=== PATIENT | female | born 1995 | race Caucasian/White ===

== ENCOUNTER 2022-03-10 13:46 | Inpatient (IN) ==
[2022-03-10] MEDS ORDERED: Buffered Lidocaine 1% SYRIN 1 ml INTRADERM ONE ×2 (14:23→14:39)
[2022-03-10] MEDS ORDERED: Lactated Ringers 1000 ml BAG 1,000 ML IV ONE (14:39)
[2022-03-10] MEDS ORDERED: Lactated Ringers 1000 ml BAG 1,000 ML IV SCH (15:00)
[2022-03-10] MEDS ORDERED: Penicillin G Potassium IV 5,000,000 UNITS in NS 0.9% 100 ml BAG 100 ML IVPB ONE (15:30)
[2022-03-10 15:54] LABS: ABS Lymphocytes 1.7 10^3/ul (1.0-4.8); ABS Monocytes 0.6 10^3/ul (0-0.8); ABS Neutrophils 9.9 10^3/ul (1.5-7.7); Eosinophil % 0.3 %; Hematocrit 40 % (35-47); Hemoglobin 13.6 g/dL (12.0-16.0); Mean Corpuscular HGB Conc 34 g/dL (31-36); Mean Corpuscular Hemoglobin 33 pg (27-31); Mean Corpuscular Volume 96 fL (80-97); Mean Platelet Volume 7.9 fL (7.4-10.4); Platelet Count 323 10^3/uL (150-450); Red Blood Count 4.14 10^6 /uL (3.70-4.87); Red Cell Distribution Width 12 % (10-15); White Blood Count 12.3 10^3/uL (3.5-10.8)
[2022-03-10 16:41] LABS: Urine Benzodiazepine Screen None Detected (None Detect); Urine Cannabinoids Screen None Detected (None Detect); Urine Opiates Screen None Detected (None Detect)
[2022-03-10] MEDS: Penicillin G Potassium IV 3,000,000 UNITS in NS 0.9% 100 ml BAG 100 ML IVPB SCH ×2 (19:42→23:45)
[2022-03-11] MEDS ORDERED: OBEPIDURAL (200 ML) 200 ML EPIDURAL ONE (00:28)
[2022-03-11] MEDS ORDERED: Lidocaine 1.5% EPI 1:200,000 30 ML SDV ONE (00:35)
[2022-03-11] MEDS ORDERED: Phenylephrine 40 mcg/mL 10mL (400mcg) SYRINGE IV PUSH PRN ×2 (00:57)
[2022-03-11] MEDS ORDERED: Sodium Citrate/Citric Acid LIQ 15 ML UDC PO PRN (00:57)
[2022-03-11] MEDS ORDERED: Lactated Ringers 1000 ml BAG 1,000 ML IV ONE (00:57)
[2022-03-11] MEDS ORDERED: Lactated Ringers 1000 ml BAG 1,000 ML IV SCH ×2 (01:00→12:00)
[2022-03-11] MEDS ORDERED: OBEPIDURAL (200 ML) 200 ML EPIDURAL SCH (01:00)
[2022-03-11 01:56] LABS: Urine Appearance Clear; Urine Bilirubin Negative (Negative); Urine Blood 3+ (Negative); Urine Color Yellow; Urine Glucose Negative (Negative); Urine Ketones 1+ (Negative); Urine Nitrite Negative (Negative); Urine Protein Negative (Negative); Urine Urobilinogen Negative (Negative)
[2022-03-11 02:12] LABS: Urine Bacteria Absent (Absent); Urine Red Blood Cell 3+(>10/hpf) (Absent); Urine Squamous Epithelial Cell Present (Absent); Urine White Blood Cell 1+(6-10/hpf) (Absent)
[2022-03-11] MEDS: Penicillin G Potassium IV 3,000,000 UNITS in NS 0.9% 100 ml BAG 100 ML IVPB SCH ×2 (03:47→07:51)
[2022-03-11] MEDS ORDERED: Oxytocin in LR 20 UNITS/1,000 ML BAG IVPB ONE (09:10)
[2022-03-11] MEDS ORDERED: Oxytocin in LR 20 UNITS/1,000 ML BAG IVPB SCH ×2 (11:00→12:00)
[2022-03-11] MEDS ORDERED: Methylergonovine 0.2 mg AMPULE 1 ml AMP IM ONE (11:17)
[2022-03-11] MEDS ORDERED: Witch Hazel PAD JAR TOPICAL PRN (11:17)
[2022-03-11] MEDS ORDERED: Dibucaine 1% OINT 28.35 GM TUBE PR PRN (11:17)
[2022-03-11] MEDS ORDERED: Lidocaine 1% MPF 5 ML VIAL ONE (16:29)
[2022-03-12 07:29] LABS: ABS Eosinophils 0.1 10^3/ul (0-0.6); ABS Lymphocytes 1.7 10^3/ul (1.0-4.8); ABS Neutrophils 9.2 10^3/ul (1.5-7.7); Eosinophil % 0.7 %; Hematocrit 30 % (35-47); Hemoglobin 10.3 g/dL (12.0-16.0); Lymphocyte % 14.4 %; Mean Corpuscular HGB Conc 34 g/dL (31-36); Mean Corpuscular Hemoglobin 33 pg (27-31); Mean Corpuscular Volume 96 fL (80-97); Mean Platelet Volume 7.3 fL (7.4-10.4); Platelet Count 206 10^3/uL (150-450); Red Blood Count 3.14 10^6 /uL (3.70-4.87); Red Cell Distribution Width 13 % (10-15)
[2022-03-13 09:29] VITALS: BP 109/65
== END 2022-03-13 11:15 | disposition home or self-care (01) | DRG 542 ==
LOC: MCHOBOUT 13:46 → MCHOB 14:41
PROVIDERS: ADMIT Midwife; ATTEND Midwife

== ENCOUNTER 2024-03-10 20:42 | Inpatient (IN) ==
[2024-03-10] MEDS ORDERED: Lidocaine 1% VIAL 10 MG/ML 30 ML VIAL INJ PRN (21:05)
[2024-03-10] MEDS ORDERED: Prochlorperazine 5 mg/ml 2 ml VIAL (10 mg) IV PRN (21:05)
[2024-03-10] MEDS: Penicillin G Potassium IV 5,000,000 UNITS in NS 0.9% 100 ml BAG 100 ML IVPB ONE (21:40)
[2024-03-10 21:59] LABS: ABS Eosinophils 0.1 10^3/uL (0.0-0.5); ABS Lymphocytes 2.4 10^3/uL (1.0-4.8); ABS Monocytes 0.9 10^3/uL (0.0-0.9); ABS Neutrophils 7.2 10^3/uL (1.5-7.6); ABS Nucleated RBC 0.03 10^3/ul; Eosinophil % 1.1 %; Hematocrit 40.1 % (35-45); Hemoglobin 13.9 g/dL (11.5-14.3); Lymphocyte % 22.3 %; Mean Corpuscular Hemoglobin 32.6 pg (27-33); Mean Corpuscular Hgb Conc 34.6 g/dL (31-36); Mean Corpuscular Volume 94.2 fL (80-97); Mean Platelet Volume 7.7 fL (7.5-11.2); Nucleated Red Blood Cells % 0.3 %/100WBC (0.0-0.8); Platelet Count 315 10^3/uL (150-450); Red Blood Count 4.26 10^6/uL (3.63-4.92); Red Cell Distribution Width 13.5 % (12-17); White Blood Count 10.6 10^3/uL (3.8-11.8)
[2024-03-10 22:20] LABS: Urine Benzodiazepine Screen None Detected (None Detect); Urine Opiates Screen None Detected (None Detect)
[2024-03-10] MEDS ORDERED: Glycerin ADULT 2.4 gm SUPP PR PRN (23:36)
[2024-03-10] MEDS ORDERED: Witch Hazel PAD JAR TOPICAL PRN (23:36)
[2024-03-10] MEDS ORDERED: Dibucaine 1% OINT 28.35 GM TUBE PR PRN (23:36)
[2024-03-10] MEDS ORDERED: Lactated Ringers 1000 ml BAG 1,000 ML IV SCH (23:45)
[2024-03-11] MEDS: Methylergonovine 0.2 mg AMPULE 1 ml AMP ONE (00:56)
[2024-03-11] MEDS: Methylergonovine 0.2 mg AMPULE 1 ml AMP IM ONE (01:16)
[2024-03-11 06:38] LABS: ABS Lymphocytes 1.7 10^3/uL (1.0-4.8); ABS Monocytes 1.1 10^3/uL (0.0-0.9); ABS Neutrophils 11.8 10^3/uL (1.5-7.6); ABS Nucleated RBC 0.01 10^3/ul; Eosinophil % 0.1 %; Hematocrit 33.2 % (35-45); Hemoglobin 11.6 g/dL (11.5-14.3); Lymphocyte % 11.9 %; Mean Corpuscular Hemoglobin 32.9 pg (27-33); Mean Corpuscular Volume 94.1 fL (80-97); Mean Platelet Volume 7.4 fL (7.5-11.2); Nucleated Red Blood Cells % 0.1 %/100WBC (0.0-0.8); Platelet Count 276 10^3/uL (150-450); Red Blood Count 3.53 10^6/uL (3.63-4.92); Red Cell Distribution Width 13.2 % (12-17); White Blood Count 14.6 10^3/uL (3.8-11.8)
[2024-03-11] MEDS: Lactated Ringers 1000 ml BAG 1,000 ML IV ONE (07:23)
[2024-03-11] MEDS: Oxytocin in LR 20,000 MILLI.UNIT/1,000 ML BAG IV ONE (07:24)
[2024-03-11] MEDS: Lactated Ringers 1000 ml BAG 1,000 ML IV SCH (07:27)
[2024-03-11] MEDS: Buffered Lidocaine 1% SYRIN 1 ml INTRADERM ONE (07:27)
[2024-03-12] MEDS: Penicillin G Potassium IV 3,000,000 UNITS in NS 0.9% 100 ml BAG 100 ML IVPB SCH (00:12)
[2024-03-13 07:32] VITALS: BP 114/73
== END 2024-03-13 11:07 | disposition home or self-care (01) | DRG 560 ==
LOC: MCHOBOUT 20:42 → MCHOB 21:03
PROVIDERS: ADMIT Registered Nurse; ATTEND Registered Nurse